=== PATIENT | female | born 2000 | race Caucasian/White ===

== ENCOUNTER 2021-08-18 23:07 | Emergency (ER) | payer BC ==
[~2021-08-18] VITALS: Ht 172.7 cm; Wt 65.8 kg
[2021-08-18 23:26] VITALS: BP_SYST 122; BP_SYST 124; BP_DIAS 79
--- NOTE | 2021-08-18 23:46 | ER.PDOC ---
General Chief Complaint: General Complaint Stated Complaint: DIZZINESS,NUMBNESS IN HANDS TRAVEL OUT OF US: No Time seen by MD: 23:32 Source: patient Exam Limitations: no limitations History of Present Illness Initial Comments This 21-year-old white female was here in the emergency department actually at work. 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 She developed his acute sensation that she might pass out became quite diaphoretic and pale. Per the other nurses . Patient literally had to sit down on the floor and rested for a little bit. Patient states that she has a history of hypoglycemia and this is happened to her multiple times in the past. She was given some orange juice and within a matter of few minutes was feeling fine. She went home and her mother sent her back to us to have her checked out. Patient has no complaints of any type at this point. Timing/Duration: 1-3 hours Severity: mild (This occurred about 2 hours ago) Modifying Factors: improves with other (Symptoms were completely resolved with some orange juice) Associated Symptoms: diaphoresis, nausea/vomiting Past Medical History Medical History: other Surgical History: knee Social History Smoking: non-smoker Alcohol Use: none Drug Use: none Review of Systems Constitutional: denies no symptoms reported, denies see HPI, denies chills, denies diaphoresis, denies fever, denies malaise, denies weakness, denies other EENTM: denies no symptoms reported, denies see HPI, denies eye pain, denies blurred vision, denies tearing, denies double vision, denies ear pain, denies ear discharge, denies nose pain, denies nose congestion, denies throat pain, denies throat swelling, denies mouth pain, denies mouth swelling, denies other Respiratory: denies no symptoms reported, denies see HPI, denies cough, denies orthopnea, denies shortness of breath, denies stridor, denies wheezing, denies other Cardiovascular: denies no symptoms reported, denies see HPI, denies chest pain, denies edema, denies palpitations, denies syncope, denies other Gastrointestinal: denies no symptoms reported, denies see HPI, denies abdominal pain, denies constipation, denies diarrhea, denies nausea, denies vomiting, denies other Genitourinary: denies no symptoms reported, denies see HPI, denies discharge, denies dysuria, denies frequency, denies hematuria, denies pain, denies other Musculoskeletal: denies no symptoms reported, denies see HPI, denies back pain, denies gout, denies joint pain, denies joint swelling, denies muscle pain, denies muscle stiffness, denies neck pain, denies other Skin: denies no symptoms reported, denies see HPI, denies change in color, denies change in hair/nails, denies dryness, denies lesions, denies lumps, denies rash, denies other Psychiatric/Neurological: denies no symptoms reported, denies see HPI, denies anxiety, denies depressed, denies emotional problems, denies headache, denies numbness, denies paresthesia, denies pre-existing deficit, denies seizure, denies tingling, denies tremors, denies weakness, denies other Hematologic/Lymphatic: denies no symptoms reported, denies see HPI, denies anemia, denies blood clots, denies easy bleeding, denies easy bruising, denies swollen glands, denies other Immunological/Allergic: denies no symptoms reported, denies see HPI, denies food allergy, denies grass allergy, denies mold allergy, denies pollen allergy, denies HIV/AIDS, denies transplant Physical Exam General Appearance: No Apparent Distress, WD/WN EENT: eyes nml inspection Neck: Non-Tender, Full Range of Motion, Supple, Normal Inspection Respiratory: chest non-tender, lungs clear, normal breath sounds, no respiratory distress CVS: reg rate & rhythm, no murmur, no gallop Gastrointestinal: Normal Bowel Sounds, No Organomegaly, No Pulsatile Mass, Non Tender Back: Normal Inspection Extremities: Normal Range of Motion, Non-Tender 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, No Motor/Sensory Deficits, Alert, Normal Mood/Affect Skin: Normal Color, Warm/Dry Lymphatic: No Adenopathy Results/Orders Results/Orders Vital Signs Date Time Temp Pulse Resp B/P (MAP) Pulse Ox O2 Delivery O2 Flow Rate FiO2 08/18/21 23:26 98.3 68 18 122/79 (93) 100 Room Air* 0 21 08/18/21 23:26 98.3 68 18 08/18/21 23:26 98.3 68 18 100 Laboratory Tests Test 08/18/21 23:23 POC Glucose 102 (70 - 110) Progress Progress Blood sugar 103 ER DEPART Departure Time of Disposition: 23:45 Disposition: 01 HOME / SELF CARE / HOMELESS Impression: Primary Impression: Hypoglycemia Condition: Stable Referrals: PCP,UNKNOWN (PCP) PRIMARY CARE PROVIDER Duration or Time Spent with Pa: Charism VERONICA SMITH MD August 18, 2021 23:46
== END 2021-08-18 23:53 | disposition home or self-care (01) ==
LOC: ER 23:07
DX: E16.2 Hypoglycemia, unspecified (principal)
CPT/HCPCS: 82948; 99282

== ENCOUNTER → 2021-10-18 | Outpatient (CLI) | payer OTHER ==
--- NOTE | 2021-10-18 16:50 | DIREP ---
PROCEDURE:MRI JOINT LOWER EXTREMITY-RT W/O COMPARISON:[facility], MR, MRI JOINT LOWER EXTREMITY-RT W/O, 08/23/2020, 02:17 PM. INDICATIONS:M25.561 PAIN IN RIGHT KNEE TECHNIQUE:A complete multi-planar MRI was performed of the knee. Moderately limited due to patient motion. FINDINGS: LIGAMENTS:Anterior cruciate ligament is intact. The posterior cruciate ligament is normal. The medial collateral ligament and lateral collateral ligamentous structures are normal. MENISCI:The medial and lateral menisci are intact. CARTILAGE:No full thickness cartilage defect. EXTENSOR MECHANISM: Intact BONES:No bone marrow edema. JOINT SPACE:No effusion. No loose bodies. OTHER: Medial plica is thickened. 18 mm tibial tuberosity to trochlear groove interval. CONCLUSION: 1. Thickening of the medial plica. 2. Increased tibial tuberosity to trochlear groove interval of 18 mm. Primitivo Carbone D.O. fellowship trained musculoskeletal and spine radiologist Dictated by: Primitivo Carbone DO on 10/18/2021 at 04:44 PM
== END | disposition home or self-care (01) ==
LOC: RAD 14:02
PROVIDERS: ATTEND Nurse Practitioner Adult Health
DX: M67.51 Plica syndrome, right knee (principal); M25.561 Pain in right knee
CPT/HCPCS: 73721

== ENCOUNTER 2022-06-05 21:16 | Emergency (ER) | payer SELFPAY ==
[~2022-06-05] VITALS: Ht 172.7 cm; Wt 56.7 kg
[2022-06-05 21:39] VITALS: BP 130/96
[2022-06-05] MEDS ORDERED: MECLIZINE HCL PO STA (22:16)
[2022-06-05] MEDS ORDERED: MECLIZINE HCL ONE (22:30)
--- NOTE | 2022-06-05 22:49 | PCM.EKG ---
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
--- NOTE | 2022-06-05 22:53 | DIREP ---
PROCEDURE:CT HEAD OR BRAIN W/O CONTRAST COMPARISON:None. INDICATIONS:Dizziness TECHNIQUE:CT images were created without intravenous contrast. FINDINGS: VENTRICLES:The ventricles are normal in size and configuration. CEREBRUM:Normal cerebral morphology with appropriate aguilar white matter differentiation. CEREBELLUM:Negative. BRAINSTEM:Negative. BASAL CISTERNS:Negative. HEMORRHAGE (Vol L*W*H*.52):No MASS LESION:No ACUTE INFARCT:No SKULL:Normal. SINUSES:Normal. OTHER:None CONCLUSION:No acute intracranial abnormality. Dictated by: Yovany Warren M.D. on 06/05/2022 at 10:51 PM
--- NOTE | 2022-06-05 22:53 | NUR ---
ORTHOSTATICS DONE AT THIS TIME 2247-LAYING BP 12/75 HR 63 2250- SITTING BP 120/89 HR 94 2253- STANDING BP 126/89 HR 89
[2022-06-05 23:07] LABS: BASOPHIL % 0.3 % (0.0-0.2); EOSINOPHIL % 0.6 % (0.0-5.0); LYMPHOCYTES # 1.23 10^3/uL1 (1.0-4.8); LYMPHOCYTES % 17.3 % (24.0-44.0); MEAN CORP HGB 27.4 pg (26-34); MONOCYTES # 0.8 10^3/uL (0.3-0.8); MONOCYTES % 10.8 % (5.0-12.0); NEUTROPHIL # 5.1 10^3/uL (1.8-7.7); PLATELET COUNT 218 10^3/uL (150-400); RED CELL DISTRIBUTION WIDTH 12.9 % (11.5-14.5)
[2022-06-05 23:11] LABS: BILIRUBIN,URINE NEGATIVE (NEGATIVE); UROBILINOGEN,URINE 0.2 E.U./dL (0.2)
--- NOTE | 2022-06-05 23:20 | ER.PDOC ---
General Chief Complaint: DIZZINESS Stated Complaint: DIZZINESS Time seen by MD: 22:30 Source: patient Exam Limitations: no limitations History of Present Illness Initial Comments Dizziness at work this evening and she felt like passing out. No chest pain or shortness of breath. No fever or chills. No other complaints. Occurred: this evening Severity: moderate Usually: walks w/o assistance Worsened By: nothing Past Medical History Medical History: no pertinent history Surgical History: no surgical history Family History Significant Family History: no pertinent family hx Social History Smoking: non-smoker Alcohol Use: none Drug Use: none Review of Systems Constitutional: no symptoms reported Ears: dizziness Respiratory: no symptoms reported Cardiovascular: no symptoms reported Gastrointestinal: no symptoms reported Musculoskeletal: no symptoms reported All Other Systems: Reviewed and Negative Physical Exam General Appearance: alert, no distress EENT: nml eye inspection, PERRL, no nystagmus, nml ENT inspection, pharynx nml, TM's nml Neck: supple Respiratory: no resp distress, breath sounds nml CVS: reg rate & rhythm, heart sounds.nml Abdomen: non-tender, no organomegaly, no distention Skin: color nml, no rash, warm/dry Extremities: non-tender, nml ROM, no pedal edema Neuro/Psych: nml orientation, nml speech/cognition, nml mood/affect Cranial Nerves: nml as tested, no evidence of acute CVA Sensorimotor: nml motor, nml sensation Results/Orders Results/Orders Orders - PAMELA WOODALL MD Cbc With Auto Diff (06/05/22 22:16) Comprehensive Metabolic Panel (06/05/22 22:16) Urinalysis (06/05/22 22:16) EKG (06/05/22 22:16) Troponin I High Sensitivity (06/05/22 22:16) Hcg Qualitative Serum (06/05/22 22:16) Ct Head Wo Contrast (06/05/22 22:16) Meclizine Hcl (Meclizine Hcl) (06/05/22 22:16) Meclizine Hcl (Meclizine Hcl) (06/05/22 22:30) Vital Signs Date Time Temp Pulse Resp B/P (MAP) Pulse Ox O2 Delivery O2 Flow Rate FiO2 06/05/22 21:39 97.8 90 18 99 06/05/22 21:39 97.8 90 18 130/96 (107) 99 Room Air* 0 21 06/05/22 21:39 97.8 90 18 Administered Medications Medications (Trade) Dose Ordered Sig/Júnior Route PRN Reason Start Time Stop Time Status Last Admin Dose Admin Meclizine HCl (Meclizine HCl) 25 mg STAT STAT PO 06/05/22 22:16 06/05/22 22:19 DC 06/05/22 22:55 25 MG Laboratory Tests Test 06/05/22 22:36 06/05/22 22:50 Urine Collection Type CCMS Urine Color YELLOW Urine Appearance TURBID Urine Bilirubin NEGATIVE (NEGATIVE) Urine Ketones NEGATIVE (NEGATIVE) Urine Specific Garrison >=1.030 (1.005-1.030) Urine pH 5.5 (4.5-8.0) Urine Protein 1+ (NEGATIVE) H Urine Urobilinogen 0.2 E.U./dL (0.2) Urine Nitrate NEGATIVE (NEGATIVE) Urine Leukocyte Esterase NEGATIVE (NEGATIVE) Urine Glucose (Auto)(UA) NEGATIVE (NEGATIVE) Urine Blood 2+ (NEGATIVE) H Urine RBC 2-5 RBC/HPF (NONE SEEN) Urine WBC 2-5 WBC/HPF (0-2) Urine Squamous Epithelial Cells MANY (<=FEW) Urine Calcium Oxalate Crystals FEW (NONE SEEN) A Urine Bacteria MANY (NONE SEEN) H Urine Mucus MODERATE (NONE SEEN) White Blood Count 7.1 10^3/uL (4.5-11.0) Red Blood Count 5.22 10^6/uL (4.00-5.20) H Hemoglobin 14.3 g/dL (12.0-15.0) Hematocrit 43.6 % (36.0-46.0) Mean Corpuscular Volume 83.5 fL (78-100) Mean Corpuscular Hemoglobin 27.4 pg (26-34) Mean Corpuscular Hemoglobin Concent 32.8 g/dL (33-36.5) L Red Cell Distribution Width 12.9 % (11.5-14.5) Platelet Count 218 10^3/uL (150-400) Mean Platelet Volume 10.6 fL (7.8-11.0) Neutrophils (%) (Auto) 71.0 % (41.0-85.0) Lymphocytes (%) (Auto) 17.3 % (24.0-44.0) L Monocytes (%) (Auto) 10.8 % (5.0-12.0) Neutrophils # (Auto) 5.1 10^3/uL (1.8-7.7) Lymphocytes # (Auto) 1.23 10^3/uL1 (1.0-4.8) Monocytes # (Auto) 0.8 10^3/uL (0.3-0.8) Absolute Immature Granulocyte (auto 0.01 10^3 u/L (0-2) Absolute Eosinophils (auto) 0.0 10^3/uL (0.0-0.2) Immature Granulocytes % 0.10 % (0.00-0.50) Eosinophils % 0.6 % (0.0-5.0) Basophils % 0.3 % (0.0-0.2) H Basophils # 0.0 10^3/uL (0.0-0.1) Sodium Level 138 mmol/L (132-145) Potassium Level 3.3 mmol/L (3.6-5.2) L Chloride Level 102.0 mmol/L (96-109) Carbon Dioxide Level 26.2 mmol/L (20.0-32) Anion Gap 13.1 Blood Urea Nitrogen 14 mg/dL (7-18) Creatinine 1.01 mg/dL (0.59-1.40) Estimated GFR () 83.7 (>/=60) Est GFR (CKD-EPI)(Non-Afr Guyanese) 69.2 (>/=60) BUN/Creatinine Ratio 13.0 Glucose Level 115 mg/dL (70-110) H Calcium Level 9.5 mg/dL (8.4-10.5) Total Bilirubin 0.7 mg/dL (0.2-1.0) Aspartate Amino Transferase (AST) 12 U/L (0-35) Alanine Aminotransferase (ALT) 18 U/L (12-78) Alkaline Phosphatase 74 U/L (50-136) Troponin I High Sensitivity < 4 ng/L (0-50) Total Protein 8.3 g/dL (6.4-8.2) H Albumin 4.4 g/dL (3.4-5.0) Globulin 3.9 Albumin/Globulin Ratio 1.128 Serum HCG, Qualitative NEGATIVE (NEGATIVE) Progress Progress CT head show no acute intracranial abnormality. Urinalysis show many bacteria and many squamous epithelial cells, negative nit rite and leukocyte esterase. test is negative. CBC is normal. Potassium is 3.3, rest of chemistry is unremarkable. Troponin is normal. Patient received meclizine and dizziness completely resolved. She feels better to go home. EKG/XRAY/CT/US EKG: NSR EKG Comments: HR 66, normal P axis ER DEPART Departure Time of Disposition: 23:37 Disposition: 01 HOME / SELF CARE / HOMELESS Impression: Primary Impression: Dizziness and giddiness Additional Impression: Vaso vagal episode Condition: Improved Referrals: VERNON HERNANDEZ PA-C (PCP) PRIMARY CARE PROVIDER Additional Instructions: Follow-up with your PCP in 1 to 2 days Return to ED if worsening symptoms or concerns Duration or Time Spent with Pa: 45 min Problem Qualifiers PAMELA WOODALL MD Jun 05, 2022 23:20
[2022-06-05 23:23] LABS: CARBON DIOXIDE 26.2 mmol/L (20.0-32); GLUCOSE 115 mg/dL (70-110)
== END 2022-06-05 23:42 | disposition home or self-care (01) ==
LOC: ER 21:16
DX: R42 Dizziness and giddiness (principal); R55 Syncope and collapse
CPT/HCPCS: 36415; 70450; 80053; 81001; 84484; 84703; 85025; 87086; 93005; 99285; J8597

== ENCOUNTER 2022-06-13 01:07 | Emergency (ER) | payer SELFPAY ==
[~2022-06-13] VITALS: Ht 172.7 cm; Wt 59.0 kg
--- NOTE | 2022-06-13 01:10 | NUR ---
ARRIVAL 22 Y/O WHITE FEMALE PRSENTS TO ED C/O N/V LIGHTHEADED, STATES SHE GOT LIGHT HEADED AND PASSED OUT SOMEWHERE WOKE UP AND WAS BROUGHT TO ED VIS WC. EMISIS X [address] WOODALL NOTIFIED AT BEDSIDE.
[2022-06-13] MEDS ORDERED: NS 1000ML 1,000 ML IV STA (01:25)
[2022-06-13] MEDS ORDERED: ZOFRAN IV STA (01:25)
[2022-06-13] MEDS ORDERED: NS 1000ML 1,000 ML ONE (01:31)
[2022-06-13] MEDS ORDERED: ZOFRAN ONE (01:31)
[2022-06-13 01:35] LABS: BASOPHIL % 0.1 % (0.0-0.2); EOSINOPHIL % 0.2 % (0.0-5.0); LYMPHOCYTES # 0.43 10^3/uL1 (1.0-4.8); LYMPHOCYTES % 4.3 % (24.0-44.0); MEAN CORP HGB 27.7 pg (26-34); MONOCYTES # 0.5 10^3/uL (0.3-0.8); MONOCYTES % 4.5 % (5.0-12.0); NEUTROPHIL # 9.2 10^3/uL (1.8-7.7); NEUTROPHILS % 90.8 % (41.0-85.0); PLATELET COUNT 191 10^3/uL (150-400); RED CELL DISTRIBUTION WIDTH 12.9 % (11.5-14.5)
[2022-06-13 01:43] VITALS: BP 129/87
--- NOTE | 2022-06-13 01:44 | ER.PDOC ---
General Chief Complaint: Requesting Medical Care Stated Complaint: VOMITING Time seen by MD: 01:43 Source: patient Exam Limitations: no limitations History of Present Illness Initial Comments Nausea and vomiting this evening. No diarrhea or abdominal pain. No fever or chills. Severity/Quality: moderate Associated Symptoms (vomiting): freq vomitng Vital Signs First Vital Signs Date Time Temp Pulse Resp B/P (MAP) Pulse Ox O2 Delivery O2 Flow Rate FiO2 06/13/22 01:43 98.3 117 20 96 06/13/22 01:43 129/87 (101) Room Air* 0 21 Last Vital Signs Date Time Temp Pulse Resp B/P (MAP) Pulse Ox O2 Delivery O2 Flow Rate FiO2 06/13/22 01:43 98.3 117 20 06/13/22 01:43 129/87 (101) 96 Room Air* 0 21 Past Medical History Medical History: no pertinent history Surgical History: no surgical history Family History Significant Family History: no pertinent family hx Social History Smoking: non-smoker Alcohol Use: none Drug Use: none Constitutional: no symptoms reported EENTM: no symptoms reported Respiratory: no symptoms reported Cardiovascular: no symptoms reported Gastrointestinal: see HPI All Other Systems: Reviewed and Negative Physical Exam General Appearance: No Apparent Distress, WD/WN Neck: Non-Tender, Full Range of Motion, Supple, Normal Inspection Respiratory: chest non-tender, lungs clear, normal breath sounds, no respiratory distress, no accessory muscle use Cardiovascular: Normal Peripheral Pulses, Regular Rate, Rhythm, No Edema, No Gallop, No JVD, No Murmur Gastrointestinal: Normal Bowel Sounds, Non Tender, Soft Back: Normal Inspection, No CVA Tenderness, No Vertebral Tenderness Extremities: Normal Range of Motion, Non-Tender, Normal Inspection, No Pedal Edema, No Calf Tenderness, Normal Capillary Refill, Pelvis Stable 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 (06/13/22 01:25) 0.9 % Sodium Chloride (Ns 1000ml) (06/13/22 01:25) Ondansetron Hcl/Pf (Zofran) (06/13/22 01:25) Covid19 Antigen Padmaja Karen (06/13/22 01:25) 0.9 % Sodium Chloride (Ns 1000ml) (06/13/22 01:31) Ondansetron Hcl/Pf (Zofran) (06/13/22 01:31) Hcg Qualitative Serum (06/13/22 02:49) Vital Signs Date Time Temp Pulse Resp B/P (MAP) Pulse Ox O2 Delivery O2 Flow Rate FiO2 06/13/22 01:43 98.3 117 20 06/13/22 01:43 98.3 117 20 129/87 (101) 96 Room Air* 0 21 06/13/22 01:43 98.3 117 20 96 Administered Medications Medications (Trade) Dose Ordered Sig/Júnior Route PRN Reason Start Time Stop Time Status Last Admin Dose Admin Ondansetron HCl (Zofran) 4 mg STAT STAT IV 06/13/22 01:25 06/13/22 01:28 DC 06/13/22 01:40 4 MG Sodium Chloride 1,000 ml @ 1,200 mls/hr Q50M STAT IV 06/13/22 01:25 06/13/22 02:14 DC 06/13/22 01:39 1,200 MLS/HR Laboratory Tests Test 06/13/22 00:00 06/13/22 01:28 SARS-CoV-2 Antigen (Rapid) NEGATIVE (NEGATIVE) White Blood Count 10.1 10^3/uL (4.5-11.0) Red Blood Count 5.23 10^6/uL (4.00-5.20) H Hemoglobin 14.5 g/dL (12.0-15.0) Hematocrit 44.5 % (36.0-46.0) Mean Corpuscular Volume 85.1 fL (78-100) Mean Corpuscular Hemoglobin 27.7 pg (26-34) Mean Corpuscular Hemoglobin Concent 32.6 g/dL (33-36.5) L Red Cell Distribution Width 12.9 % (11.5-14.5) Platelet Count 191 10^3/uL (150-400) Mean Platelet Volume 10.3 fL (7.8-11.0) Neutrophils (%) (Auto) 90.8 % (41.0-85.0) *H Lymphocytes (%) (Auto) 4.3 % (24.0-44.0) *L Monocytes (%) (Auto) 4.5 % (5.0-12.0) L Neutrophils # (Auto) 9.2 10^3/uL (1.8-7.7) H Lymphocytes # (Auto) 0.43 10^3/uL1 (1.0-4.8) L Monocytes # (Auto) 0.5 10^3/uL (0.3-0.8) Absolute Immature Granulocyte (auto 0.01 10^3 u/L (0-2) Absolute Eosinophils (auto) 0.0 10^3/uL (0.0-0.2) Immature Granulocytes % 0.10 % (0.00-0.50) Eosinophils % 0.2 % (0.0-5.0) Basophils % 0.1 % (0.0-0.2) Basophils # 0.0 10^3/uL (0.0-0.1) Sodium Level 140 mmol/L (132-145) Potassium Level 3.2 mmol/L (3.6-5.2) L Chloride Level 104.0 mmol/L (96-109) Carbon Dioxide Level 26.7 mmol/L (20.0-32) Anion Gap 12.5 Blood Urea Nitrogen 14 mg/dL (7-18) Creatinine 0.99 mg/dL (0.59-1.40) Estimated GFR () 85.7 (>/=60) Est GFR (CKD-EPI)(Non-Afr Peruvian) 70.8 (>/=60) BUN/Creatinine Ratio 14.0 Glucose Level 125 mg/dL (70-110) H Calcium Level 9.4 mg/dL (8.4-10.5) Total Bilirubin 0.7 mg/dL (0.2-1.0) Aspartate Amino Transferase (AST) 17 U/L (0-35) Alanine Aminotransferase (ALT) 21 U/L (12-78) Alkaline Phosphatase 80 U/L (50-136) Total Protein 8.3 g/dL (6.4-8.2) H Albumin 4.4 g/dL (3.4-5.0) Globulin 3.9 Albumin/Globulin Ratio 1.128 Lipase 19 U/L (16-77) Serum HCG, Qualitative NEGATIVE (NEGATIVE) Progress Progress Potassium 3.2, glucose 125, rest of chemistry unremarkable. Lipase 19. CBC unremarkable. Urine test negative. Covid 19 is negative. Patient received 1 L NS and Zofran. Her nausea has resolved. She is feeling better to go home. ER DEPART Departure Time of Disposition: 03:11 Disposition: 01 HOME / SELF CARE / HOMELESS Impression: Primary Impression: Nausea & vomiting Additional Impression: Dehydration Condition: Improved Referrals: VERNON HERNANDEZ PA-C (PCP) PRIMARY CARE PROVIDER Additional Instructions: Zofran ODT Start feeding with clear liquids and advance diet as tolerated Follow-up with your PCP in 1 to 2 days Return to ED if worsening or concerns Duration or Time Spent with Pa: 20 min Problem Qualifiers Primary Impression: Nausea & vomiting Vomiting type: unspecified Qualified Codes: R11.2 - Nausea with vomiting, unspecified PAMELA WOODALL MD Jun 13, 2022 01:44
[2022-06-13 02:01] LABS: CARBON DIOXIDE 26.7 mmol/L (20.0-32)
[2022-06-13 03:18] LABS: BASOPHIL 1 % (0-2); LYMPHOCYTE 7 % (25-36); MONOCYTE 2 % (3-9); SEGMENTED NEUTROPHILS 90 % (31-76)
[2022-06-13 03:35] VITALS: BP 104/63
== END 2022-06-13 03:36 | disposition home or self-care (01) ==
LOC: ER 01:07
DX: R11.2 Nausea with vomiting, unspecified (principal); E86.0 Dehydration; Z20.822 Contact with and (suspected) exposure to COVID-19
CPT/HCPCS: 99284; 96374; 87426; 96361; 80053; 85025; 36415; 83690; 84703; J7030; J2405; 81025